=== PATIENT | male | born 1990 | race Two or more races ===

== ENCOUNTER 2024-01-03 18:24 | Emergency (ER) | payer OTHER ==
[~2024-01-03] VITALS: Ht 175.3 cm; Wt 131.0 kg
[2024-01-03 18:33] VITALS: BP 154/109; PULSE 84; RESP 18; TEMP 98.6; O2SAT 96
[2024-01-03] MEDS ORDERED: BENZOCAINE (DENTAL) 20 % SPRAY 60ML MT ONE (20:15)
[2024-01-03] MEDS ORDERED: HUR60 MT (20:43)
[2024-01-03] MEDS: cefTRIAXone SOD 1,000 MG VL IM ONE (20:52)
[2024-01-03] MEDS: KETOROLAC TROMETH 60MG/2ML VIAL IM ONE (20:59)
== END 2024-01-03 20:55 | disposition home or self-care (01) ==
LOC: ER 18:24
DX: K04.7 Periapical abscess without sinus (principal); Z98.890 Other specified postprocedural states
CPT/HCPCS: 96372; 99284; J0696; J1885

== ENCOUNTER 2024-01-07 15:25 | Emergency (ER) | payer OTHER ==
[~2024-01-07] VITALS: Ht 177.8 cm; Wt 128.3 kg
[~2024-01-07 15:25] MED LIST: HUR60 MT
[2024-01-07] MEDS: HYDROcodone-ACET 10/325MG TAB PO ONE (16:37)
[2024-01-07 16:43] VITALS: BP 148/94; PULSE 78; RESP 17; TEMP 98.9; O2SAT 98
[2024-01-07] MEDS ORDERED: IBUP-1456 PO (16:43)
== END 2024-01-07 17:03 | disposition home or self-care (01) ==
LOC: ER 15:25
DX: K04.7 Periapical abscess without sinus (principal); Z79.899 Other long term (current) drug therapy

== ENCOUNTER 2024-01-12 14:14 | Emergency (ER) | payer OTHER ==
[~2024-01-12] VITALS: Ht 175.3 cm; Wt 128.0 kg
[~2024-01-12 14:14] MED LIST changes: +IBUP-1456 PO
[2024-01-12 14:26] VITALS: BP 174/109; PULSE 74; RESP 16; O2SAT 98
[2024-01-12] MEDS ORDERED: TRAM-626 PO (15:57)
[2024-01-12] MEDS ORDERED: HYDROcodone-ACET 10/325MG TAB PO ONE (16:00)
== END 2024-01-12 16:01 | disposition home or self-care (01) ==
LOC: ER 14:14
DX: K04.7 Periapical abscess without sinus (principal); Z79.899 Other long term (current) drug therapy

== ENCOUNTER 2024-07-16 13:39 | Emergency (ER) | payer OTHER ==
[~2024-07-16] VITALS: Ht 177.8 cm; Wt 119.3 kg
[~2024-07-16 13:39] MED LIST changes: +TRAM-626 PO
[2024-07-16 15:02] VITALS: BP 135/93; PULSE 80; RESP 17; TEMP 99; O2SAT 97
--- NOTE | 2024-07-16 15:42 | DVH ---
XY R TIB FIB XRAY, INDICATION: pain to the distal tib. r/o fracture TECHNICAL DATA: Frontal and lateral views were obtained of the right leg. COMPARISON: None FINDINGS: There is no osseous abnormality. Soft tissues are normal. IMPRESSION: No acute fracture or dislocation.
[2024-07-16] MEDS ORDERED: CEPH500T PO (15:54)
[2024-07-16] MEDS ORDERED: IBUP-1455 PO (15:54)
--- NOTE | 2024-07-16 15:54 | ED.PDOC ---
Musculoskeletal HPI Comments 34 year old smoker presents for localized well demarcated erythema and tenderness to the RLE x 3 days Concerns about possible infection Denies f/c/n/v/d Able to ambulate Chief Complaint: Lower Extremity Time Seen by MD: 14:43 Primary Care Provider: none Reviewed Notes: Nurses Notes, Medications, Allergies Allergies: Coded Allergies: NO KNOWN ALLERGIES (Unverified , 01/03/24) Home Meds Active Scripts Ibuprofen Micronized (Ibuprofen) 800 Mg Tab, 800 MG PO TID for 10 Days, #30 TAB 0 Refills Prov:SERA PLAZA CATALYST PLANT SUPERVISOR 07/16/24 Cephalexin Monohydrate (Cephalexin) 500 Mg Tab, 1 TAB PO QID for 10 Days, #40 TAB 0 Refills Prov:SERA PLAZA CATALYST PLANT SUPERVISOR 07/16/24 Tramadol HCl (Tramadol HCl) 50 Mg Tab, 50 MG PO BID, #20 TAB Prov:BLANCA GARNICA 01/12/24 Ibuprofen (Ibuprofen) 800 Mg Tab, 1 TAB PO TID, #30 TAB Prov:BLANCA GARNICA 01/07/24 Benzocaine (Dental) (HURRICAINE SPRAY) 1 Spr Sp, 1 SPR MT QIDPRN, #1 SPRAY 0 Refills Prov:ISABELA COLES 01/03/24 Information Source: Patient Mode of Arrival: Ambulatory Past Medical History PAST MEDICAL HISTORY: Denies Surgical History: Denies all surgeries Family History Family History: Reviewed,noncontributory to illness Social History Smoker: Non-Smoker Alcohol: Denies ETOH Use Drugs: Denies Drug Use Lives In: Home All Other Systems: Reviewed and Negative (per hpi) Physical Exam General Appearance: No Apparent Distress, Normal HEENT: Normal ENT Inspection, Pharynx Normal, TMs Normal Neck: Full Range of Motion, Non-Tender, Normal, Normal Inspection Respiratory: Chest Non-Tender, Lungs Clear, No Accessory Muscle Use, No Respiratory Distress, Normal Breath Sounds Cardiovascular: No Edema, No JVD, No Murmur, No Gallop, Normal Peripheral Pulses, Regular Rate/Rhythm Breast Exam: Deferred Gastrointestinal: No Organomegaly, Non Tender, No Pulsatile Mass, Normal Bowel Sounds, Soft Genitalia: Deferred Pelvic: Deferred Rectal: Deferred Extremities: No calf tenderness, Normal capillary refill, Normal inspection, Normal range of motion, Non-tender, No pedal edema Musculoskeletal : Location: Right Extremity Location: Leg (Localized erythema. no crepitus. full rom. distal sensation intact) Apperance: Normal Neurologic: Alert, No Motor Deficits, Normal Affect, Normal Mood, No Sensory Deficits Cerebellar Function: Normal Reflexes: Normal Skin: Dry, Normal Color, Warm Lymphatic: No Adenopathy Was a procedure done? Was a procedure done?: No Differential Diagnosis EXT Differential Diagnosis: Cellulitis, Sprain, Other X-Ray, Labs, Meds, VS Vital Signs Date Time Temp Pulse Resp B/P (MAP) Pulse Ox O2 Delivery O2 Flow Rate FiO2 07/16/24 15:02 80 17 97 Room Air 07/16/24 15:02 99.0 80 17 135/93 (107) 97 99.0 07/16/24 13:48 99.0 80 17 155/93 (113) 97 99.0 Current Medications Medications (Trade) Dose Ordered Sig/Cornelius Route Start Time Stop Time Status Last Admin Ketorolac Tromethamine (Toradol Injection) 30 mg ONCE ONCE IM 07/16/24 16:15 07/16/24 16:09 DC 07/16/24 16:09 X-Ray, Labs, Meds, VS Comment Exam findings consistent with cellulitis. No signs of severe infection (hemodynamically instability (endorgan damage or extensive local progression) will manage with outpatient antibiotics Ibuprofen as needed for fever and pain Patient is stable for discharge at this time. External notes reviewed. All diagnostic findings, discharge care, education and instructions provided Follow-up with PCP in 2 to 3 days Patient verbalized understanding and agreed to treatment plan Vital signs stable, afebrile, no acute distress noted Patient ambulatory with strong steady gait Advised to return precautions for any new or worsening symptoms, return to ER immediately for re-evaluation Patient is aware that the purpose of this visit was for an acute medical emergency requiring emergent stabilization. Chronic conditions, including malignancies have not been ruled out. Patient is instructed to follow up with PCP as directed and discharge instructions for continued care and workup. If unable to arrange follow-up, patient is to return to the emergency department for reassessment. Patient (parent or legal guardian if applicable) was given verbal and written discharge instructions and acknowledges understanding. Time of 1ST Reevaluation: 15:30 Reevaluation 1ST: Improved Patient Education/Counseling: Diagnosis, Treatment Family Education/Counseling: Diagnosis, Treatment Departure 1 Departure Time of Disposition: 15:49 Impression: Primary Impression: Erysipelas Additional Impression: Encounter for smoking cessation counseling Disposition: HOME / SELF CARE / HOMELESS Condition: Stable e-Prescriptions Ibuprofen Micronized (Ibuprofen) 800 Mg Tab 800 MG PO TID for 10 Days, #30 TAB 0 Refills Prov: SERA PLAZA NP 07/16/24 Cephalexin Monohydrate (Cephalexin) 500 Mg Tab 1 TAB PO QID for 10 Days, #40 TAB 0 Refills Prov: SERA PLAZA NP 07/16/24 Critical Care Note Critical Care Time?: No Stability Stability form required: No Heart Score Heart Score: Heart Score Response (Comments) Value History N/A 0 EKG N/A 0 Age N/A 0 Risk Factors N/A 0 Troponin N/A 0 Total 0 SERA PLAZA NP Jul 16, 2024 15:54
[2024-07-16] MEDS: KETOROLAC TROMETH 30 MG/ML 1ML VIAL IM ONE (16:09)
== END 2024-07-16 16:09 | disposition home or self-care (01) ==
LOC: ER 13:39
DX: A46 Erysipelas (principal); Z71.6 Tobacco abuse counseling; Z79.1 Long term (current) use of non-steroidal anti-inflammatories (NSAID); Z79.899 Other long term (current) drug therapy
CPT/HCPCS: 73590; 96372; 99283; J1885

== ENCOUNTER 2024-07-18 18:49 | Emergency (ER) | payer OTHER ==
[~2024-07-18] VITALS: Ht 177.8 cm; Wt 143.2 kg
[~2024-07-18 18:49] MED LIST changes: +CEPH500T PO; +IBUP-1455 PO
--- NOTE | 2024-07-18 19:56 | ED.PDOC ---
Musculoskeletal HPI Comments 34y M who presents to the ED for chief complaint of lower extremity pain. Pt states he has been having R lower extremity pain and swelling for unknown time. Pt states over the past few days, he has noticed increased swelling and pain and came to the ED for further evaluation. Pt otherwise denies shortness of breath, chest pain, palpitations, cough, fever, chills, dysuria or hematuria. 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 Pt has past history of meth abuse and states he suffered from alcohol abuse. Pt otherwise denies any other symptoms at this time. Chief Complaint: Lower Extremity Time Seen by MD: 19:52 Primary Care Provider: none Reviewed Notes: Nurses Notes, Medications, Allergies Allergies: Coded Allergies: NO KNOWN ALLERGIES (Unverified , 01/03/24) Home Meds Active Scripts Ibuprofen Micronized (Ibuprofen) 800 Mg Tab, 800 MG PO TID for 10 Days, #30 TAB 0 Refills Prov:SERA PLAZA HEAVY EQUIPMENT OPERATING ENGINEER 07/16/24 Cephalexin Monohydrate (Cephalexin) 500 Mg Tab, 1 TAB PO QID for 10 Days, #40 TAB 0 Refills Prov:SERA PLAZA NP 07/16/24 Tramadol HCl (Tramadol HCl) 50 Mg Tab, 50 MG PO BID, #20 TAB Prov:BLANCA GARNICA 01/12/24 Ibuprofen (Ibuprofen) 800 Mg Tab, 1 TAB PO TID, #30 TAB Prov:BLANCA GARNICA 01/07/24 Benzocaine (Dental) (HURRICAINE SPRAY) 1 Spr Sp, 1 SPR MT QIDPRN, #1 SPRAY 0 Refills Prov:ISABELA COLES 01/03/24 Information Source: Patient Mode of Arrival: Ambulatory Brought in by: self Location: Right Extremity Location: Leg Timing: Came on: Gradually Prehospital treatment: None Severity: Moderate Able to Move Extremity: Yes Bear Weight: Fully Pain: Moderate Mechanism: Spontaneous Circumstances: Spontaneous Onset of Symptoms: Spontaneous Symptoms: Swelling, Pain DVT Risk Factors: NONE Last Tetanus: Unknown Associated signs and symptoms: Leg pain Past Medical History PAST MEDICAL HISTORY: Denies Surgical History: Denies all surgeries Family History Family History: Reviewed,noncontributory to illness Social History Smoker: Cigarettes Alcohol: Sober Drugs: Denies Drug Use, Methamphetamine Lives In: Home Constitutional: denies: chills, diaphoresis, fatigue, fever, malaise, sweats, weakness, others EENTM: denies: blurred vision, double vision, ear bleeding, ear discharge, ear drainage, ear pain, ear ringing, eye pain, eye redness, hearing loss, mouth pain , mouth swelling, nasal discharge, nose bleeding, nose congestion, nose pain, photophobia, tearing, throat pain, throat swelling, voice changes, others Respiratory: denies: cough, hemoptysis, orthopnea, SOB at rest, shortness of breath, SOB with excertion, stridor, wheezing, others Cardiovascular: denies: chest pain, dizzy spells, diaphoresis, Dyspnea on exertion, edema, irregular heart beat, left arm pain, lightheadedness, palpitations, PND, syncope, others Gastrointestinal: denies: abdomen distended, abdominal pain, blood streaked bowels, constipated, diarrhea, dysphagia, difficulty swallowing, hematemesis, melena, nausea, poor appetite, poor fluid intake, rectal bleeding, rectal pain, vomiting, others Genitourinary: denies: burning, dysuria, flank pain, frequency, hematuria, incontinence, penile discharge, penile sore, pain, testicle pain, testicle swelling, urgency, others Neurological: denies: dizziness, fainting, headache, left sided numbness, left sided weakness, numbness, paresthesia, pre-existing deficit, right sided numbness, right sided weakness, seizure, speech problems, tingling, tremors, weakness, others Musculoskeletal: reports: joint pain (RLE); denies: back pain, gout, joint swelling, muscle pain, muscle stiffness, neck pain, others Integumetry: reports: change in color (RLE); denies: bruises, change in hair/nails, dryness, laceration, lesions, lumps, rash, wounds, others Allergic/Immunocompromised: denies: Difficulty Healing, Frequent Infections, Hives, Itching, others Hematologic/Lymphatic: denies: anemia, blood clots, easy bleeding, easy bruising, swollen glands, others Endocrine: denies: excessive hunger, excessive sweating, excessive thirst, excessive urination, flushing, intolerance to cold, intolerance to heat, unexplained weight gain, unexplained weight loss, others Psychiatric: denies: anxiety, bipolar disorder, depression, hopeless, panic disorder, schizophrenia, sleepless, suicidal, others All Other Systems: Reviewed and Negative Physical Exam General Appearance: Mild Distress HEENT: Normal ENT Inspection, Pharynx Normal, TMs Normal Neck: Full Range of Motion, Non-Tender, Normal, Normal Inspection Respiratory: Chest Non-Tender, Lungs Clear, No Accessory Muscle Use, No Respiratory Distress, Normal Breath Sounds Cardiovascular: No Edema, No JVD, No Murmur, No Gallop, Normal Peripheral Pulses, Regular Rate/Rhythm Breast Exam: Deferred Gastrointestinal: No Organomegaly, Non Tender, No Pulsatile Mass, Normal Bowel Sounds, Soft Genitalia: Deferred Pelvic: Deferred Rectal: Deferred Extremities: No calf tenderness, Normal capillary refill, Normal inspection, Normal range of motion, Non-tender, No pedal edema Musculoskeletal : Apperance: Normal Neurologic: Alert, photogrammetric surveyor II-XII nml as Tested, No Motor Deficits, Normal Affect, Normal Mood, No Sensory Deficits Cerebellar Function: Normal Reflexes: Normal Skin: Dry, Normal Color, Warm Lymphatic: No Adenopathy Was a procedure done? Was a procedure done?: No Differential Diagnosis EXT Differential Diagnosis: Cellulitis, CHF, Deep Vein Thrombosis, DJD, Septic X-Ray, Labs, Meds, VS Vital Signs Date Time Temp Pulse Resp B/P (MAP) Pulse Ox O2 Delivery O2 Flow Rate FiO2 07/18/24 19:37 99.6 77 18 144/92 (109) 98 99.6 Ultrasound of the right lower extremity is negative for DVT The patient was being discharged The patient will follow up with the primary care doctor The patient will return to the emergency department's the condition worsens. Images Reviewed?: Images reviewed and evaluated by me Time of 1ST Reevaluation: 20:30 Reevaluation 1ST: Unchanged Patient Education/Counseling: Diagnosis, Treatment, Prognosis, Need For Follow Up Family Education/Counseling: No Family Present Additional Information -Reviewed patient's previous visit(s): - The following tests were ordered, and results were reviewed by me: R lower DVT US - Additional information was gathered from interviewing the following independent Historian: patient - I reviewed and agreed with the following test results read by other provider: radiologist - I discussed treatments and results with medical personnel and: patient Comprehensive systems review obtained and negative except for what is stated in the HPI. Departure 1 Departure Time of Disposition: 20:27 Impression: Primary Impression: Right leg swelling Disposition: HOME / SELF CARE / HOMELESS Condition: Fair Discharged With: Self Critical Care Note Critical Care Time?: No Stability Stability form required: No Heart Score Heart Score: Heart Score Response (Comments) Value History N/A 0 EKG N/A 0 Age N/A 0 Risk Factors N/A 0 Troponin N/A 0 Total 0 I personally scribed for GAVIN DONG MD ([email or web address]) on 07/18/24 at 19:56. Electronically submitted by Scarlett Beckham ([email or web address]). GAVIN DONG MD Jul 18, 2024 19:56
--- NOTE | 2024-07-18 20:09 | DVH ---
CLINICAL HISTORY: right leg swelling TECHNIQUE: Color and duplex doppler imaging of the right lower extremity veins was performed. Vessel compression if possible was also performed. WID: COMPARISON: None FINDINGS: Right common femoral vein: Normal compressibility and flow. Right femoral vein: Normal compressibility and flow. Right popliteal vein: Normal compressibility and flow. Proximal calf veins are normally compressible. IMPRESSION: NO SONOGRAPHIC EVIDENCE FOR DEEP VENOUS THROMBOSIS IN THE RIGHT LOWER EXTREMITY VEINS.
[2024-07-18 20:56] VITALS: BP 143/81; PULSE 96; RESP 18; TEMP 98; O2SAT 97
[2024-07-19] MEDS ORDERED: BACDST PO (15:29)
== END 2024-07-18 20:59 | disposition home or self-care (01) ==
LOC: ER 18:49
DX: M79.89 Other specified soft tissue disorders (principal); F17.210 Nicotine dependence, cigarettes, uncomplicated; F12.90 Cannabis use, unspecified, uncomplicated; Z79.899 Other long term (current) drug therapy; Z79.1 Long term (current) use of non-steroidal anti-inflammatories (NSAID)
CPT/HCPCS: 93971

== ENCOUNTER 2024-07-19 13:47 | Emergency (ER) | payer OTHER ==
[~2024-07-19] VITALS: Ht 175.3 cm; Wt 141.9 kg
[2024-07-19 14:14] VITALS: BP 141/80; PULSE 78; RESP 16; TEMP 98.7; O2SAT 97
--- NOTE | 2024-07-19 14:28 | ED.PDOC ---
Musculoskeletal HPI Comments A 34 YEAR OLD MALE PRESENTS TO THE ED WITH CHIEF COMPLAINT OF RIGHT LEG PAIN, REDNESS, AND SWELLING. PATIENT REPORTS THAT HE HAS BEEN EXPERIENCING RIGHT LEG PAIN, SWELLING, AND REDNESS SINCE TUESDAY. PATIENT RELAYS THAT HE VISITED THE ED YESTERDAY FOR THE SAME CONCERN, WAS TOLD HE HAD NO DVT NOTED, BUT WAS PRESCRIBED KEFLEX AND IBUPROFEN. PATIENT NOTES HE RETURNED TODAY DUE TO THE PAIN CONTINUING. PATIENT DENIES ANY NUMBNESS, WEAKNESS, FEVER, CHILLS, SOB, OR CHEST PAIN. NO OTHER SYMPTOMS REPORTED AT THIS TIME OF CARE. Chief Complaint: Lower Extremity Time Seen by MD: 14:24 Primary Care Provider: NONE Reviewed Notes: Nurses Notes, Medications, Allergies Allergies: Coded Allergies: NO KNOWN ALLERGIES (Unverified , 01/03/24) Home Meds Active Scripts Sulfamethoxazole W/Trimethopri (Bactrim Ds Tablet) 1 Tab Tb, 1 TAB PO BID, #20 TAB Prov:BLANCA GARNICA 07/19/24 Ibuprofen Micronized (Ibuprofen) 800 Mg Tab, 800 MG PO TID for 10 Days, #30 TAB 0 Refills Prov:SERA PLAZA HUMAN RESOURCES OFFICE ASSISTANT 07/16/24 Cephalexin Monohydrate (Cephalexin) 500 Mg Tab, 1 TAB PO QID for 10 Days, #40 TAB 0 Refills Prov:SERA PLAZA HUMAN RESOURCES OFFICE ASSISTANT 07/16/24 Tramadol HCl (Tramadol HCl) 50 Mg Tab, 50 MG PO BID, #20 TAB Prov:BLANCA GARNICA 01/12/24 Ibuprofen (Ibuprofen) 800 Mg Tab, 1 TAB PO TID, #30 TAB Prov:BLANCA GARNICA 01/07/24 Benzocaine (Dental) (HURRICAINE SPRAY) 1 Spr Sp, 1 SPR MT QIDPRN, #1 SPRAY 0 Refills Prov:ISABELA COLES 01/03/24 Information Source: Patient Mode of Arrival: Ambulatory Location: Right Extremity Location: Leg Timing: Days Prehospital treatment: None Severity: Moderate Able to Move Extremity: Yes Bear Weight: Limited Pain: Moderate Mechanism: Spontaneous Circumstances: Spontaneous Onset of Symptoms: Spontaneous Symptoms: Swelling, Pain, Erythema, Warmth DVT Risk Factors: NONE Last Tetanus: Unknown Associated signs and symptoms: Leg pain Past Medical History PAST MEDICAL HISTORY: Denies Surgical History: Denies all surgeries Family History Family History: Reviewed,noncontributory to illness Social History Smoker: Cigarettes Alcohol: Sober Drugs: Denies Drug Use, Methamphetamine Lives In: Home Constitutional: denies: chills, diaphoresis, fatigue, fever, malaise, sweats, weakness, others EENTM: denies: blurred vision, double vision, ear bleeding, ear discharge, ear drainage, ear pain, ear ringing, eye pain, eye redness, hearing loss, mouth pain, mouth swelling, nasal discharge, nose bleeding, nose congestion, nose pain, photophobia, tearing, throat pain, throat swelling, voice changes, others Respiratory: denies: cough, hemoptysis, orthopnea, SOB at rest, shortness of breath, SOB with excertion, stridor, wheezing, others Cardiovascular: denies: chest pain, dizzy spells, diaphoresis, Dyspnea on exertion, edema, irregular heart beat, left arm pain, lightheadedness, palpitations, PND, syncope, others Gastrointestinal: denies: abdomen distended, abdominal pain, blood streaked bowels, constipated, diarrhea, dysphagia, difficulty swallowing, hematemesis, melena, nausea, poor appetite, poor fluid intake, rectal bleeding, rectal pain, vomiting, others Genitourinary: denies: burning, dysuria, flank pain, frequency, hematuria, incontinence, penile discharge, penile sore, pain, testicle pain, testicle swelling, urgency, others Neurological: denies: dizziness, fainting, headache, left sided numbness, left sided weakness, numbness, paresthesia, pre-existing deficit, right sided numbness, right sided weakness, seizure, speech problems, tingling, tremors, wea kness, others Musculoskeletal: denies: back pain, gout, joint pain, joint swelling, muscle pain, muscle stiffness, neck pain, others Integumetry: reports: others (REDNESS AND SWELLING TO RIGHT LOWER LEG); denies: bruises, change in color, change in hair/nails, dryness, laceration, lesions, lumps, rash, wounds Allergic/Immunocompromised: denies: Difficulty Healing, Frequent Infections, Hives, Itching, others Hematologic/Lymphatic: denies: anemia, blood clots, easy bleeding, easy bruising, swollen glands, others Endocrine: denies: excessive hunger, excessive sweating, excessive thirst, excessive urination, flushing, intolerance to cold, intolerance to heat, unexplained weight gain, unexplained weight loss, others Psychiatric: denies: anxiety, bipolar disorder, depression, hopeless, panic disorder, schizophrenia, sleepless, suicidal, others All Other Systems: Reviewed and Negative Physical Exam General Appearance: No Apparent Distress, Obese HEENT: Normal ENT Inspection, PERRL/EOMI, Pharynx Normal Neck: Full Range of Motion, Non-Tender, Normal, Normal Inspection Respiratory: Chest Non-Tender, Lungs Clear, No Accessory Muscle Use, No Respiratory Distress, Normal Breath Sounds Cardiovascular: No Edema, No JVD, No Murmur, No Gallop, Normal Peripheral Pulses, Regular Rate/Rhythm Breast Exam: Deferred Gastrointestinal: No Organomegaly, Non Tender, No Pulsatile Mass, Normal Bowel Sounds, Soft Genitalia: Deferred Pelvic: Deferred Rectal: Deferred Extremities: No calf tenderness, Normal capillary refill, Normal range of motion, No pedal edema, Tender (AND MILD SWELLING AND REDNESS ON RIGHT INNER LOWER LEG, NO DVT SIGNS. ) Musculoskeletal : Apperance: Normal Neurologic: Alert, livestock farm workers II-XII nml as Tested, No Motor Deficits, Normal Affect, Normal Mood, No Sensory Deficits Cerebellar Function: Normal Reflexes: Normal Skin: Dry, Warm, Other (LOCALIZED ERYTHEMA AND MILD SWELLING ON RIGHT INNER LOWER LEG, NO OPEN WOUND SEEN, +EARLY STAGE CELLULITIS OF RIGHT LOWER LEG. ) Peripheral Pulses: 2+ carotid (R), 2+ carotid (L), 2+ dorsalis pedis (R), 2+ dorsalis pedis (L) Lymphatic: No Adenopathy Was a procedure done? Was a procedure done?: No Differential Diagnosis EXT Differential Diagnosis: Cellulitis, Deep Vein Thrombosis, Contusion, Strain X-Ray, Labs, Meds, VS Vital Signs Date Time Temp Pulse Resp B/P (MAP) Pulse Ox O2 Delivery O2 Flow Rate FiO2 07/19/24 14:14 98.7 78 16 141/80 (100) 97 98.7 07/19/24 14:14 78 16 97 Room Air 07/19/24 14:00 98.7 78 16 141/80 (100) 97 98.7 Lab Test 07/19/24 14:35 07/19/24 13:57 Range/Units White Blood Count 11.7 H 4.4-10.8 10^3/uL Red Blood Count 5.74 4.5-5.90 10^6/uL Hemoglobin 12.9 L 13.5-17.5 g/dL Hematocrit 41.3 41.0-53.0 % Mean Corpuscular Volume 71.9 L 80.0-100.0 fL Mean Corpuscular Hemoglobin 22.5 L 28.0-32.0 pg Mean Corpuscular Hemoglobin Concent 31.2 L 32.0-36.0 g/dL Red Cell Distribution Width 18.4 H 11.8-14.3 % Platelet Count 317 140-450 10^3/uL Mean Platelet Volume 8.2 6.9-10.8 fL Neutrophils (%) (Auto) 64.7 37.0-80.0 % Lymphocytes (%) (Auto) 25.3 10.0-50.0 % Monocytes (%) (Auto) 6.9 0.0-12.0 % Eosinophils (%) (Auto) 1.9 0.0-7.0 % Basophils (%) (Auto) 1.2 0.0-2.0 % Neutrophils # (Auto) 7.6 1.6-8.6 10 ^3/uL Lymphocytes # (Auto) 3.0 0.4-5.4 10 ^3/uL Monocytes # (Auto) 0.8 0-1.3 10 ^3/uL Eosinophils # (Auto) 0.2 0-0.8 10 ^3/uL Basophils # (Auto) 0.1 0-0.2 10 ^3/uL Nucleated Red Blood Cells 0.1 % Sodium Level 141 136-145 mmol/L Potassium Level 3.6 3.5-5.1 mmol/L Chloride Level 108 H 98-107 mmol/L Carbon Dioxide Level 26 20-31 mmol/L Anion Gap 7 5-15 Blood Urea Nitrogen 14 9-23 mg/dL Creatinine 0.72 0.700-1.30 mg/dL Glomerular Filtration Rate Calc 121 >90 mL/min BUN/Creatinine Ratio 19.4 10.0-20.0 Serum Glucose 88 74-106 mg/dL Calcium Level 9.8 8.7-10.4 mg/dL POC Glucose 135 H 70-106 mg/dl X-Ray, Labs, Meds, VS Comment EXTERNAL MEDICAL RECORDS REVIEWED: 07/18/24 FOR RIGHT LEG SWELLING. INDEPENDENT HISTORIANS: [NONE] SOCIAL DETERMINANTS OF HEALTH: [NONE] LABS ORDERED: CBC, BMP REVIEWED AND INTERPRETED RESULTS: NONE IMAGING ORDERED: NONE TREATMENTS ORDERED: ROCEPHIN 2G IVPB AND TORADOL 30MG IV PROCEDURES PERFORMED: NONE CRITICAL CARE TIME: NONE I HAVE DISCUSSED THE PATIENT WITH THE ATTENDING PHYSICIAN DR. HOWARD AND HE AGREES WITH THE PATIENT'S PLAN OF CARE AND DISPOSITION. BASED ON HISTORY OF PRESENT ILLNESS, AND PHYSICAL EXAM, PATIENT WILL BE DISCHARGED HOME. DISCUSSED PLAN FOR DISCHARGE HOME WITH [facility]. MEDICATION WARNINGS GIVEN. SHARED DECISION MAKING: DISCUSSED WITH PATIENT THAT THEIR WORKUP WAS NORMAL. PATIENT INSTRUCTED TO FOLLOW UP WITH PRIMARY CARE PROVIDER IN 1-2 DAYS FOR RE- EVALUATION OF SYMPTOMS. PATIENT VERBALIZES UNDERSTANDING TO RETURN TO ED FOR NEW OR WORSENING SYMPTOMS OR IF FOLLOW UP WITH PCP CANNOT BE OBTAINED. PATIENT FEELS COMFORTABLE GOING HOME AT THIS TIME. ALL QUESTIONS ADDRESSED AT TIME OF DISCHARGE. Time of 1ST Reevaluation: 15:50 Reevaluation 1ST: Unchanged Patient Education/Counseling: Diagnosis, Treatment, Need For Follow Up Family Education/Counseling: Diagnosis, Treatment, No Family Present Medical Screening: No EMC Exist At This Time Departure 1 Departure Time of Disposition: 14:34 Impression: Primary Impression: Cellulitis of right lower leg Disposition: 01 HOME / SELF CARE / HOMELESS Condition: Stable Additional Instructions: FOLLOW-UP WITH PCP IN 1 TO 2 DAYS. TAKE MEDICATIONS PRESCRIBED. RETURN TO ED FOR ANY NEW OR WORSENING SYMPTOMS. e-Prescriptions Sulfamethoxazole W/Trimethopri (Bactrim Ds Tablet) 1 Tab Tb 1 TAB PO BID, #20 TAB Prov: BLANCA GARNICA 07/19/24 Discharged With: Self Critical Care Note Critical Care Time?: No Stability Stability form required: No Heart Score Heart Score: Heart Score Response (Comments) Value History N/A 0 EKG N/A 0 Age N/A 0 Risk Factors N/A 0 Troponin N/A 0 Total 0 I personally scribed for BLANCA GARNICA ([email or web address]) on 07/19/24 at 14:28. Electronically submitted by Isidoro Rosenberg ([email or web address]). I personally scribed for BLANCA GARNICA ([email or web address]) on 07/19/24 at 14:34. Electronically submitted by Isidoro Rosenberg ([email or web address]). I personally scribed for BLANCA GARNICA ([email or web address]) on 07/19/24 at 15:01. Electronically submitted by Isidoro Rosenberg ([email or web address]). I personally scribed for BLANCA GARNICA ([email or web address]) on 07/19/24 at 15:29. Electronically submitted by Isidoro Rosenberg ([email or web address]). BLANCA GARNICA Jul 19, 2024 14:28
[2024-07-19 14:45] LABS: Basophils # (auto) 0.1 10 ^3/uL (0-0.2); Basophils % (auto) 1.2 % (0.0-2.0); Eosinophils # (auto) 0.2 10 ^3/uL (0-0.8); Eosinophils % (auto) 1.9 % (0.0-7.0); Hematocrit 41.3 % (41.0-53.0); Hemoglobin 12.9 g/dL (13.5-17.5); Lymphocytes % (auto) 25.3 % (10.0-50.0); Mean Corpuscular Hemoglobin 22.5 pg (28.0-32.0); Mean Corpuscular Hgb Conc. 31.2 g/dL (32.0-36.0); Mean Corpuscular Volume 71.9 fL (80.0-100.0); Monocytes # (auto) 0.8 10 ^3/uL (0-1.3); Monocytes % (auto) 6.9 % (0.0-12.0); Neutrophils # (auto) 7.6 10 ^3/uL (1.6-8.6); Neutrophils % (auto) 64.7 % (37.0-80.0); Nucleated Red Blood Cells % 0.1 %; Platelet Count (auto) 317 10^3/uL (140-450); Red Blood Cells 5.74 10^6/uL (4.5-5.90); Red Cell Distribution Width 18.4 % (11.8-14.3); White Blood Cell 11.7 10^3/uL (4.4-10.8)
[2024-07-19] MEDS: cefTRIAXone 1GM/50ML D5W 50 ML IV ONE ×2 (14:48)
[2024-07-19] MEDS: KETOROLAC TROMETH 30 MG/ML 1ML VIAL IV ONE (14:48)
[2024-07-19 14:55] LABS: Potassium 3.6 mmol/L (3.5-5.1); Sodium 141 mmol/L (136-145)
[2024-07-19 14:56] LABS: Anion Gap 7 (5-15); Calcium 9.8 mg/dL (8.7-10.4); Carbon Dioxide 26 mmol/L (20-31)
[2024-07-19 15:01] LABS: BUN/Creatinine Ratio 19.4 (10.0-20.0); Blood Urea Nitrogen 14 mg/dL (9-23); Glucose 88 mg/dL (74-106)
[2024-07-19 15:06] LABS: Chloride 108 mmol/L (98-107)
[2024-07-19] MEDS ORDERED: BACDST PO (15:29)
== END 2024-07-19 15:39 | disposition home or self-care (01) ==
LOC: ER 13:47
DX: L03.115 Cellulitis of right lower limb (principal); F17.210 Nicotine dependence, cigarettes, uncomplicated; F15.90 Other stimulant use, unspecified, uncomplicated; Z79.1 Long term (current) use of non-steroidal anti-inflammatories (NSAID); Z79.899 Other long term (current) drug therapy
CPT/HCPCS: 36415; 80048; 82947; 85025; 99283; J0696; 82962; J1885

== ENCOUNTER 2024-08-13 16:31 | Emergency (ER) | payer MEDICAID ==
[~2024-08-13] VITALS: Ht 175.3 cm; Wt 139.5 kg
[~2024-08-13 16:31] MED LIST changes: +BACDST PO
--- NOTE | 2024-08-13 17:54 | ED.PDOC ---
Musculoskeletal HPI Comments HPI: Vitals Temperature: 97.4 F Respiratory rate: 20 SpO2: 96% RA Heart rate: 104 Blood pressure: 164/97 HPI: Poor Historian. 34-year-old male presents to emergency department for evaluation of right ankle swelling. Said he was here a month ago and was diagnosed with cellulitis was given antibiotics and ibuprofen which helped it resolved. He said it was much worse back then. He presents to the emergency department with the same complaint now but not as severe as it was a month ago. There is minimal swelling appreciated on exam. Denies any associated symptoms of nausea vomiting fever or calf tenderness or numbness or tingling sensation. Past Medical History: Denies any Past Surgical History: Denies any REVIEW OF SYSTEMS: CONSTITUTIONAL: Denies acute: fever, diaphoresis, chills, generalized weakness. HEAD: Denies acute: headache, photophobia Eyes: Denies acute: Double vision, vision loss, eye pain, eye discharge. EARS: Denies acute: tinnitus, hearing loss, ear discharge, ear pain, THROAT: Denies acute: sore throat, swelling, difficulty swallowing , pain with swallowing, change in voice. NECK: Denies acute: neck pain, neck swelling, stiff neck. HEART: Denies acute : chest pain, palpitations, LUNGS: Denies acute: SOB, wheezing, cough, hemoptysis ABDOMEN: Denies acute: abdominal pain, Nausea, Vomiting, diarrhea, melena , hematemesis, hematochezia SKIN: Denies acute: rash, redness, lesions, itchiness. EXTREMITIES: Denies acute: calf pain, numbness, tingling, weakness, denies pain in extremity. Denies acute: Low back pain. Neuro: Denies acute: focal neurological deficit, motor or sensory focal neurological deficit, tremors, seizure like activity, confusion, dizziness, change in mental status, loss of bowel or bladder function, cauda equina like symptoms. : Denies acute: dysuria, hematuria, flank pain, increase in urinary frequency. PSYCH: Denies acute: hallucination, suicidal ideation, homicidal ideation. PHYSICAL EXAM: General: ----no----acute distress, awake and alert. Head: normocephalic, atraumatic. Neck: supple, trachea is midline, no swelling. Throat: Normal phonation. Eyes:, no erythema, no purulent discharge, no proptosis, no icterus. Heart: regular rate, regular rhythm, no significant murmur appreciated. Lungs: no apparent respiratory distress, Able to speak in full sentences. No wheezing, no rhonchi, no crackles. No stridors Clear to auscultation bilaterally. Abdomen: non tender to palpation, non distended, soft, no guarding, no rebound, + bowel sounds. Obese. Neuro: Awake, Alert, oriented to name, self, situation, follows commands GCS=15. Speech is normal. Skin: no petechia, no purpura, no cyanosis, non-pale, not jaundice. Lower extremities: --no - Pitting edema no deformity, minimal right lateral malleoli focal swelling, no calf TTP. Right lower extremity: Patient is neurovascularly intact in the affected extremity. Pedal pulses palpable bilaterally. Motor and sensory are present bilaterally. Makes eye contact. moves all four extremities. Face: no apparent facial droop. Ambulating in the ED independently. ED COURSE: Chief Complaint: Lower Extremity Time Seen by MD: 17:50 Primary Care Provider: NONE Reviewed Notes: Nurses Notes, Medications, Allergies Allergies: Coded Allergies: NO KNOWN ALLERGIES (Unverified , 01/03/24) Home Meds Active Scripts Cephalexin Monohydrate (Cephalexin) 500 Mg Tab, 1 TAB PO TID for 7 Days, #21 TAB Prov:GARETH KINGSLEY DO 08/13/24 Sulfamethoxazole W/Trimethopri (Bactrim Ds Tablet) 1 Tab Tb, 1 TAB PO BID, #20 TAB Prov:BLANCA GARNICA 07/19/24 Ibuprofen Micronized (Ibuprofen) 800 Mg Tab, 800 MG PO TID for 10 Days, #30 TAB 0 Refills Prov:SERA PLAZA NP 07/16/24 Cephalexin Monohydrate (Cephalexin) 500 Mg Tab, 1 TAB PO QID for 10 Days, #40 TAB 0 Refills Prov:SERA PLAZA NP 07/16/24 Tramadol HCl (Tramadol HCl) 50 Mg Tab, 50 MG PO BID, #20 TAB Prov:BLANCA GARNICA 01/12/24 Ibuprofen (Ibuprofen) 800 Mg Tab, 1 TAB PO TID, #30 TAB Prov:BLANCA GARNICA 01/07/24 Benzocaine (Dental) (HURRICAINE SPRAY) 1 Spr Sp, 1 SPR MT JAME, #1 SPRAY 0 Refills Prov:ISABELA COLES 01/03/24 Information Source: Patient Mode of Arrival: Ambulatory Past Medical History PAST MEDICAL HISTORY: Denies Surgical History: Denies all surgeries Family History Family History: Reviewed,noncontributory to illness Social History Smoker: Cigarettes Alcohol: Sober Drugs: Denies Drug Use Lives In: Home Was a procedure done? Was a procedure done?: No Differential Diagnosis EXT Differential Diagnosis: Cellulitis, CHF, Deep Vein Thrombosis, Compartment Syndrome, Fracture, Sprain, Dislocation, Laceration, Gout, Myocardial Infa rction, Contusion, Strain, Rheumatoid, Septic, Hernia, Neurovascular injury, Arthritis, Bursitis X-Ray, Labs, Meds, VS Vital Signs Date Time Temp Pulse Resp B/P (MAP) Pulse Ox O2 Delivery O2 Flow Rate FiO2 08/13/24 20:55 98.2 18 73 147/98 (114) 98 98.2 08/13/24 20:55 73 18 98 Room Air* 0 21 08/13/24 16:36 97.4 104 20 164/97 (119) 96 97.4 Lab Test 08/13/24 18:27 Range/Units White Blood Count 10.9 H 4.4-10.8 10^3/uL Red Blood Count 5.49 4.5-5.90 10^6/uL Hemoglobin 12.3 L 13.5-17.5 g/dL Hematocrit 39.7 L 41.0-53.0 % Mean Corpuscular Volume 72.3 L 80.0-100.0 fL Mean Corpuscular Hemoglobin 22.4 L 28.0-32.0 pg Mean Corpuscular Hemoglobin Concent 31.0 L 32.0-36.0 g/dL Red Cell Distribution Width 17.4 H 11.8-14.3 % Platelet Count 299 140-450 10^3/uL Mean Platelet Volume 8.7 6.9-10.8 fL Neutrophils (%) (Auto) 62.7 37.0-80.0 % Lymphocytes (%) (Auto) 26.9 10.0-50.0 % Monocytes (%) (Auto) 7.9 0.0-12.0 % Eosinophils (%) (Auto) 1.7 0.0-7.0 % Basophils (%) (Auto) 0.8 0.0-2.0 % Neutrophils # (Auto) 6.8 1.6-8.6 10 ^3/uL Lymphocytes # (Auto) 2.9 0.4-5.4 10 ^3/uL Monocytes # (Auto) 0.9 0-1.3 10 ^3/uL Eosinophils # (Auto) 0.2 0-0.8 10 ^3/uL Basophils # (Auto) 0.1 0-0.2 10 ^3/uL Nucleated Red Blood Cells 0.0 % Erythrocyte Sedimentation Rate 9 0-20 mm/hr Sodium Level 141 136-145 mmol/L Potassium Level 3.5 3.5-5.1 mmol/L Chloride Level 104 98-107 mmol/L Carbon Dioxide Level 29 20-31 mmol/L Anion Gap 8 5-15 Blood Urea Nitrogen 12 9-23 mg/dL Creatinine 0.84 0.700-1.30 mg/dL Glomerular Filtration Rate Calc 116 >90 mL/min BUN/Creatinine Ratio 14.3 10.0-20.0 Serum Glucose 93 74-106 mg/dL Lactic Acid Level 0.6 0.4-2.0 mmol/L Calcium Level 9.6 8.7-10.4 mg/dL Total Bilirubin 0.3 0.2-1.0 mg/dL Aspartate Amino Transferase (AST) 23 13-40 U/L Alanine Aminotransferase (ALT) 29 7-40 U/L Alkaline Phosphatase 159 H 46-116 U/L C-Reactive Protein High Sensitivity 0.48 <1.0 mg/dL B-Type Natriuretic Peptide 10.58 0-100 pg/mL Total Protein 7.2 5.7-8.2 g/dL Albumin 4.7 3.2-4.8 g/dL Time of 1ST Reevaluation: 17:53 Reevaluation 1ST: Unchanged Patient Education/Counseling: Diagnosis, Treatment Family Education/Counseling: No Family Present Comments Patient presented with the above HPI.--left ankle swelling and pain----workup was initiated. patient was found with the above mentioned diagnosis. the following medications were ordered: please refer to order lists of meds and tests obtained by myself Dr. Kingsley. Patient ED course and VS have been stabilized. Patient has been reassessed in the ED and remained in a stable condition. Pertinent incidental findings were discussed with the patient and/or family. Patient/family voices understanding and is agreeable with plan. Patient has been observed in the ED adequate length of time to insure improvement/stability. Escalation of care considered: Consideration of escalation to observation or admission Patient was DISCHARGED home in a stable condition. All the reports of any imaging studies that were ordered by myself were reviewed by myself. Departure 1 Departure Time of Disposition: 20:37 Impression: Primary Impression: Cellulitis of right lower leg Additional Impression: Joint effusion Disposition: HOME / SELF CARE / HOMELESS Condition: Stable Additional Instructions: Additional instructions: You MUST follow-up with your primary care/family doctor in 1 to 2 days. If you are unable to see your primary care/family doctor, please return to our emergency room for re-assessment and re-evaluation in 1 to 2 days. Return to the emergency room here in our facility or to the nearest ER [facility] if your symptoms change or worsen. CONSULTATIONS: you MUST Follow-up for consultation as soon as possible with: -orthopedic doctor in 1-2 days. Please call for appointment. You MUST call the consultants office yourself to make an appointment. You may need to arrange that through your insurance and/or your primary/family doctor. If you are unable to see the hr business partner consultant in 1 to 2 days, you must return to our emergency room (or any other ER of your choice) for re-assessment and re- evaluation. Adequate fluid hydration. Leg elevation, compression stockings, ice as needed for comfort, use [id number] Tylenol ibuprofen with food as instructed for pain control. Below is a copy of your radiological report for follow up: [address] [address] Ph: [phone] DIAGNOSTIC IMAGING Diagnostic Imaging Report : [id number] Signed PATIENT: NATHAN STANTON ACCT: [id number] UNIT: [id number] : 1990 LOC: ER ROOM / BED: / AGE / SEX: 34 / M ADM STATUS: REG ER SERVICE [id number] ORDERING PHYSICIAN: GARETH KINGSLEY DO PROCEDURE(s): RANK2 - R ANKLE 2 VIEW XRAY REASON: pain swelling in ankle ORDER NUMBER(s): [id number], ACCESSION NUMBER(s): [id number] CLINICAL INDICATION: pain swelling in ankle TECHNIQUE: 2 radiographic views of the right ankle were obtained. Comparison: None FINDINGS/IMPRESSION: Questionable anterior joint effusion of the tibiotalar joint. There also questionable small soft tissue calcifications which May suggest avulsion injury. No prior studies for comparison The visualized joint space is well maintained. The alignment is anatomical. There is no radiopaque foreign body. ATED BY: ELLY MCKEON Jr., DO DICTATED DATE/TIME: 08/13/241847 SIGNED BY: ELLY MCKEON Jr., SIGNED DATE/TIME: 08/13/241847 CC: e-Prescriptions Cephalexin Monohydrate (Cephalexin) 500 Mg Tab 1 TAB PO TID for 7 Days, #21 TAB Prov: GARETH KINGSLEY DO 08/13/24 Discharged With: Self Critical Care Note Critical Care Time?: No I personally scribed for GARETH KINGSLEY DO ([email or web address]) on 08/13/24 at 17:54. Electronically submitted by Cristina Ballard ([facility]). GARETH KINGSLEY DO Aug 13, 2024 17:54
--- NOTE | 2024-08-13 18:45 | DVH ---
EXAM: US Duplex Right Lower Extremity Veins CLINICAL INDICATION: pain swelling in ankle TECHNIQUE: Real-time duplex ultrasound scan of the right lower extremity veins integrating B-mode tw o-dimensional vascular structure, Doppler spectral analysis, color flow Doppler imaging and compressi on. COMPARISON: US RT LOWER DVT on DOS: 07/18/24 FINDINGS: DEEP VEINS: Unremarkable. No DVT in the visualized common femoral, femoral, proximal deep femoral or popliteal veins. The veins demonstrate normal color flow, are normally compressible, with normal phasic flow and/or augmentation response. SUPERFICIAL VEINS: Unremarkable. No thrombus in the visualized great saphenous vein. SOFT TISSUES: No acute findings. No popliteal cyst. OTHER FINDINGS: . None. IMPRESSION: No DVT.
--- NOTE | 2024-08-13 18:50 | DVH ---
CLINICAL INDICATION: pain swelling in ankle TECHNIQUE: 2 radiographic views of the right ankle were obtained. Comparison: None FINDINGS/IMPRESSION: Questionable anterior joint effusion of the tibiotalar joint. There also questionable small soft tiss ue calcifications which May suggest avulsion injury. No prior studies for comparison The visualized joint space is well maintained. The alignment is anatomical. There is no radiopaque foreign body.
[2024-08-13 19:24] LABS: Basophils # (auto) 0.1 10 ^3/uL (0-0.2); Basophils % (auto) 0.8 % (0.0-2.0); Eosinophils # (auto) 0.2 10 ^3/uL (0-0.8); Eosinophils % (auto) 1.7 % (0.0-7.0); Hemoglobin 12.3 g/dL (13.5-17.5); Lymphocytes # (auto) 2.9 10 ^3/uL (0.4-5.4); Monocytes # (auto) 0.9 10 ^3/uL (0-1.3); Monocytes % (auto) 7.9 % (0.0-12.0)
[2024-08-13 19:25] LABS: Hematocrit 39.7 % (41.0-53.0); Lymphocytes % (auto) 26.9 % (10.0-50.0); Mean Corpuscular Hemoglobin 22.4 pg (28.0-32.0); Mean Corpuscular Volume 72.3 fL (80.0-100.0); Neutrophils # (auto) 6.8 10 ^3/uL (1.6-8.6); Neutrophils % (auto) 62.7 % (37.0-80.0); Platelet Count (auto) 299 10^3/uL (140-450); Red Blood Cells 5.49 10^6/uL (4.5-5.90); Red Cell Distribution Width 17.4 % (11.8-14.3); White Blood Cell 10.9 10^3/uL (4.4-10.8)
[2024-08-13 19:43] LABS: Alanine Aminotransferase 29 U/L (7-40); Albumin 4.7 g/dL (3.2-4.8); Anion Gap 8 (5-15); Aspartate Aminotransferase 23 U/L (13-40); BUN/Creatinine Ratio 14.3 (10.0-20.0); Blood Urea Nitrogen 12 mg/dL (9-23); CRP High Sensitivity 0.48 mg/dL (<1.0); Calcium 9.6 mg/dL (8.7-10.4); Carbon Dioxide 29 mmol/L (20-31); Chloride 104 mmol/L (98-107); Glucose 93 mg/dL (74-106); Potassium 3.5 mmol/L (3.5-5.1); Sodium 141 mmol/L (136-145); Total Protein 7.2 g/dL (5.7-8.2)
[2024-08-13 20:02] LABS: Alkaline Phosphatase 159 U/L (46-116); Bilirubin, Total 0.3 mg/dL (0.2-1.0)
[2024-08-13 20:06] LABS: Erythrocyte Sedimentation Rate 9 mm/hr (0-20)
[2024-08-13] MEDS ORDERED: CEPH500T PO (20:37)
[2024-08-13] MEDS ORDERED: FUROSEMIDE 20 MG TAB PO ONE (20:45)
[2024-08-13 20:55] VITALS: BP 147/98; PULSE 73; RESP 18; TEMP 98.2; O2SAT 98
== END 2024-08-13 20:39 | disposition home or self-care (01) ==
LOC: ER 16:50
DX: L03.115 Cellulitis of right lower limb (principal); M25.471 Effusion, right ankle; F17.210 Nicotine dependence, cigarettes, uncomplicated; R06.02 Shortness of breath
CPT/HCPCS: 36415; 73600; 80053; 83605; 83880; 85025; 85652; 86141; 93971

== ENCOUNTER 2024-11-13 18:55 | Emergency (ER) | payer MEDICAID ==
[~2024-11-13] VITALS: Ht 177.8 cm; Wt 145.5 kg
--- NOTE | 2024-11-13 19:11 | ED.PDOC ---
General HPI Comments 34 year old male presents to the emergency department with a chief complaint of LT flank pain onset 10 days. Patient states he began experiencing dysuria with burning sensation as well as hematuria, noticed urine was sand-like, since then has been experiencing intermittent LT flank pain. Patient noticed LT flank pain radiates to LLQ. He has also been experiencing chills, constipation, last bowel movement was today around 04:00. Currently rates pain 5/10. Denies any PMHx as well as fevers, nausea, vomiting, diarrhea, hematemesis, dizziness, chest pain, shortness of breath. No other symptoms or modifying factors present at this time. Time Seen by MD: 19:05 Primary Care Provider: NONE Reviewed notes: Medications, Allergies Allergies: Coded Allergies: NO KNOWN ALLERGIES (Unverified , 01/03/24) Home Meds Active Scripts Ibuprofen (Ibuprofen) 600 Mg Tab, 1 TAB PO TID for 5 Days, #15 TAB Prov:BELKIS VALDIVIA MD 11/13/24 Acetaminophen (Acetaminophen Er) 650 Mg Tab, 650 MG PO TIDPRN PRN for 5 Days, #15 TAB Prov:BELKIS VALDIVIA MD 11/13/24 Discontinued Scripts Ibuprofen Micronized (Ibuprofen) 800 Mg Tab, 800 MG PO TID for 10 Days, #30 TAB 0 Refills Prov:SERA PLAZA NP 07/16/24 Ibuprofen (Ibuprofen) 800 Mg Tab, 1 TAB PO TID, #30 TAB Prov:BLANCA GARNICA 01/07/24 Information Source: Patient Mode of Arrival: Ambulatory Severity: Moderate Timing: Days Duration: Intermittent Prehospital treatment: None Onset: Spontaneous Symptoms: Dysuria, Hematuria History of: None Location: (L)Flank Penile discharge: None Modifying factors: None associated signs and symptoms: Flank Pain, Dysuria, Hematuria Vital Signs Vital Signs Date Time Temp Pulse Resp B/P (MAP) Pulse Ox O2 Delivery O2 Flow Rate FiO2 11/14/24 00:41 57 20 98 Room Air 11/14/24 00:41 97.5 149/91 (110) 97.5 Physical Exam PHYSICAL EXAM: General: Awake, alert and oriented. No acute distress. Skin: Skin in warm, dry and intact. Appropriate color for ethnicity. HEENT: The head is normocephalic and atraumatic. Conjunctivae are clear without exudates or hemorrhage. Sclera is non-icteric. EOM are intact. No signs of nystagmus. Eyelids are normal in appearance without swelling or lesions. Oral mucosa is pink and moist Neck: The neck is supple with normal range of motion. No JVD. Cardiac: Heart rate normal. Respiratory: No signs of respiratory distress. Abdominal: Abdomen is soft, right lower quadrant tenderness, left lower quadrant tenderness, left flank tenderness, left CVA tenderness. no distention, guarding or rigidity. Neurological: The patient is awake, alert and oriented to person, place, and time with normal speech. Speech is clear. There is no facial asymmetry. Normal gait Psychiatric: Appropriate mood and affect. Good judgement and insight. Review of Systems: REVIEW OF SYSTEMS: General: No fever, positive chills, or fatigue HEENT: No sore throat, no earache, no congestion, no neck pain. Cardiac: No chest pain. No palpitations. Lungs: No shortness of breath, no cough. GI: No nausea, no vomiting, no diarrhea, positive constipation, no abdominal pain : Positive dysuria, Positive hematuria. Positive left flank pain Musculoskeletal: No joint pain , no joint swelling, no extremity edema. Skin: No rash, no itching. Neuro: No headache, no dizziness, no weakness Past Medical History PAST MEDICAL HISTORY: Denies Surgical History: Denies all surgeries Family History Family History: Reviewed,noncontributory to illness Social History Smoker: Cigarettes Alcohol: Sober Drugs: Denies Drug Use Lives In: Home Was a procedure done? Was a procedure done?: No Differential Diagnosis Kidney stone (Female): Other (Differential diagnoses considered include but are not limited to pyelonephritis, UTI, nephrolithiasis, PUD, musculoskeletal pain, AAA, other) X-Ray, Labs, Meds, VS Vital Signs Date Time Temp Pulse Resp B/P (MAP) Pulse Ox O2 Delivery O2 Flow Rate FiO2 11/14/24 00:41 57 20 98 Room Air 11/14/24 00:41 97.5 57 20 149/91 (110) 98 97.5 11/13/24 21:36 98.4 62 20 145/84 (104) 98 98.4 11/13/24 19:26 98.2 68 20 152/87 (108) 96 98.2 Lab Test 11/13/24 19:28 11/13/24 19:05 Range/Units White Blood Count 11.6 H 4.4-10.8 10^3/uL Red Blood Count 5.39 4.5-5.90 10^6/uL Hemoglobin 12.6 L 13.5-17.5 g/dL Hematocrit 39.3 L 41.0-53.0 % Mean Corpuscular Volume 72.9 L 80.0-100.0 fL Mean Corpuscular Hemoglobin 23.4 L 28.0-32.0 pg Mean Corpuscular Hemoglobin Concent 32.0 32.0-36.0 g/dL Red Cell Distribution Width 19.3 H 11.8-14.3 % Platelet Count 274 140-450 10^3/uL Mean Platelet Volume 8.6 6.9-10.8 fL Neutrophils (%) (Auto) 59.4 37.0-80.0 % Lymphocytes (%) (Auto) 29.6 10.0-50.0 % Monocytes (%) (Auto) 7.9 0.0-12.0 % Eosinophils (%) (Auto) 2.1 0.0-7.0 % Basophils (%) (Auto) 1.0 0.0-2.0 % Neutrophils # (Auto) 6.9 1.6-8.6 10 ^3/uL Lymphocytes # (Auto) 3.4 0.4-5.4 10 ^3/uL Monocytes # (Auto) 0.9 0-1.3 10 ^3/uL Eosinophils # (Auto) 0.2 0-0.8 10 ^3/uL Basophils # (Auto) 0.1 0-0.2 10 ^3/uL Nucleated Red Blood Cells 0.0 % Sodium Level 144 136-145 mmol/L Potassium Level 3.8 3.5-5.1 mmol/L Chloride Level 109 H 98-107 mmol/L Carbon Dioxide Level 27 20-31 mmol/L Anion Gap 8 5-15 Blood Urea Nitrogen 10 9-23 mg/dL Creatinine 0.87 0.700-1.30 mg/dL Glomerular Filtration Rate Calc 115 >90 mL/min BUN/Creatinine Ratio 11.5 10.0-20.0 Serum Glucose 99 74-106 mg/dL Calcium Level 9.8 8.7-10.4 mg/dL Urine Color Light-yellow Yellow Urine Clarity Clear Clear Urine pH 7.5 5.0-9.0 Urine Specific [place] 1.022 1.001-1.035 Urine Protein Negative Negative Urine Ketones Negative Negative Urine Blood Negative Negative /uL Urine Nitrite Negative Negative Urine Bilirubin Negative Negative Urine Urobilinogen Normal Negative mg/dL Urine Leukocyte Esterase Negative Negative /uL Urine RBC 1 0 - 3 /hpf Urine Microscopic WBC 1 0-3 /HPF Urine Squamous Epithelial Cells Few <5 /hpf Urine Bacteria None seen None Seen /hpf Urine Mucus Few None Seen Urine Glucose Normal Normal mg/dL Current Medications Medications (Trade) Dose Ordered Sig/Cornelius Route Start Time Stop Time Status Last Admin Ketorolac Tromethamine (Toradol Injection) 30 mg ONCE ONCE IM 11/13/24 19:15 11/13/24 19:16 DC 11/14/24 00:33 Tramadol HCl (Ultram) 50 mg ONCE ONCE PO 11/13/24 19:15 11/13/24 19:16 DC 11/14/24 00:32 Acetaminophen (Tylenol Tablet) 650 mg ONCE ONCE PO 11/13/24 19:15 11/13/24 19:16 DC 11/14/24 00:32 [place] [id number] Ph: [phone] DIAGNOSTIC IMAGING Diagnostic Imaging Report : [id number] Signed PATIENT: NATHAN STANTON ACCT: [id number] UNIT: [id number] : 1990 LOC: ER ROOM / BED: / AGE / SEX: 34 / M ADM STATUS: REG ER SERVICE 190 ORDERING PHYSICIAN: BELKIS VALDIVIA MD PROCEDURE(s): ABPL - CT AB PEL WO CON-NO ORAL OR IV REASON: Flank Pain ORDER NUMBER(s): [id number], ACCESSION NUMBER(s): [id number] Exam: CT CT AB PEL WO CON-NO ORAL OR IV History: Flank Pain Comparison Study: None TECHNIQUE: Multidetector CT of the abdomen and pelvis without IV contrast. Axial, coronal and sagittal multiplanar reformats were obtained from the axial data set by the technologist. Radiation Dose Information: CT Dose: CTDI volume is 27.18 mGy. Dose-length product is 1753.05 mGy*cm FINDINGS: Bibasilar atelectasis. Partially visualized heart is unremarkable. Mild hepatomegaly. Otherwise, liver, spleen, gallbladder, pancreas and adrenal glands are unremarkable. Kidneys, ureters and urinary bladder are unremarkable. Prostate is unremarkable. Stomach is unremarkable. Small bowel loops are unremarkable. Appendix is unremarkable. Small to moderate amount of fecal material within the colon. No evidence of intraperitoneal free air or free fluid. No evidence of aortic aneurysm. No significant lymphadenopathy. Tiny fat containing umbilical hernia. Soft tissues are unremarkable. Bilateral inguinal lymphadenopathy which are most likely reactive. No destructive osseous lesions are noted. Right femoral intramedullary shelia tract is noted. IMPRESSION: No acute abdominal or pelvic finding. Radiation optimization: All CT scans at this facility use at least one of these dose optimization techniques: automated exposure control mA and/or kV adjustment per patient size (includes targeted exams where dose is matched to clinical indication) or iterative reconstruction. ATED BY: NATY RUELAS DO DICTATED DATE/TIME: 11/13/241940 SIGNED BY: NATY RUELAS DO SIGNED DATE/TIME: 11/13/241940 CC: Time of 1ST Reevaluation: 19:35 Reevaluation 1ST: Unchanged Patient Education/Counseling: Need For Follow Up Family Education/Counseling: No Family Present SEPSIS Sepsis Screen Physician Orders Ct Ab Pel Wo Con-No Oral Or Iv (11/13/24 19:05) Vital Signs Date Time Temp Pulse Resp B/P (MAP) Pulse Ox O2 Delivery O2 Flow Rate FiO2 11/14/24 00:41 57 20 98 Room Air 11/14/24 00:41 97.5 57 20 149/91 (110) 98 97.5 11/13/24 21:36 98.4 62 20 145/84 (104) 98 98.4 11/13/24 19:26 98.2 68 20 152/87 (108) 96 98.2 Laboratory Tests Test 11/13/24 19:28 White Blood Count 11.6 10^3/uL (4.4-10.8) H Medications Medications Dose Ordered Sig/Cornelius Route Start Time Stop Time Status Last Admin Dose Admin Acetaminophen 650 mg ONCE ONCE PO 11/13/24 19:15 11/13/24 19:16 DC 11/14/24 00:32 Ketorolac Tromethamine 30 mg ONCE ONCE IM 11/13/24 19:15 11/13/24 19:16 DC 11/14/24 00:33 Tramadol HCl 50 mg ONCE ONCE PO 11/13/24 19:15 11/13/24 19:16 DC 11/14/24 00:32 Departure 1 Departure Time of Disposition: 20:14 Impression: Primary Impression: Left flank pain Disposition: HOME / SELF CARE / HOMELESS Condition: Stable Additional Instructions: ED DISCHARGE INSTRUCTIONS Instructions: Please read all instructions provided in this packet carefully. Although you have been discharged from the Emergency Department, this does not mean that you have a "clean bill of health". No definitive diagnosis for your symptoms has been made today. It is possible that you are in the process of developing a serious illness. This is why you must return to the ED without fail if any new or worsening symptoms (especially if your symptoms include chest pain, trouble breathing, abdominal pain, fever, headache, confusion, trouble seeing, or trouble walking) It is also very important that you see a primary care provider (PCP) within the next 3-5 days to follow up. If you are unable to get an appointment, return to the ED for re-evaluation. It is very important that you follow up with your primary care physician (PCP). You can call your insurance company or check your insurance card to find out who your PCP is. Or call [phone] to schedule an appointment with a new primary care provider. WHY YOU NEED A PCP: Establishing and regularly seeing a PCP and undergoing routine screenings are vital for maintaining good health. Your PCP acts as your main healthcare partner, helping you stay healthy, manage chronic conditions, and detect potential problems early. Routine screenings, like mammograms or colonoscopies, can catch diseases like cancer early when treatment is often more effective. A screening test is like a quick check-up your doctor does to see if there are any problems starting in your body, even when you feel okay, so they can find them early when they're easier to fix. Why Establish a Relationship with a Primary Care Physician (PCP)? Preventive Care: Your PCP focuses on preventing illness through regular checkups, vaccinations, and health advice tailored to your needs. Chronic Disease Management: If you have a chronic condition, like diabetes or high blood pressure, your PCP can help you manage it effectively through monitoring, medication management, and lifestyle recommendations. Early Detection: Regular visits allow your PCP to track your health over time, identify subtle changes, and order necessary screenings or tests to catch potential problems early. Trusted Resource: Your PCP gets to know you, your medical history, and your concerns, making them a trusted resource for all your health-related questions. Referrals: If you need specialized care, your PCP will refer you to the appropriate specialists and help coordinate your care. Continuity of Care: Your PCP ensures that your healthcare is coordinated, especially after hospital stays or visits to other specialists. Why are Routine Screenings Important? Early Detection: Many serious illnesses like cancer, diabetes and heart disease, can be treated more successfully when detected early. Screenings like lab tests, blood pressure checks, mammograms, colonoscopies, and Pap smears are designed to catch these diseases early. Preventing Disease: Some screenings can actually help prevent diseases from developing. Peace of Mind: Knowing that you are up-to-date on your screenings can provide peace of mind and reduce anxiety about potential health problems. In summary, establishing a relationship with a primary care physician and following their recommendations for routine screenings is important for staying healthy and managing your health effectively. It's an investment in your well- being that can pay off in the long run. Abdominal Pain: Care Instructions Overview Abdominal pain has many possible causes. Some aren't serious and get better on their own in a few days. Others need more testing and treatment. If your pain continues or gets worse, you need to be rechecked and may need more tests to find out what is wrong. You may need surgery to correct the problem. Don't ignore new symptoms, such as fever, nausea and vomiting, urination problems, pain that gets worse, and dizziness. These may be signs of a more ser ious problem. If you are not getting better, you may need more tests or treatment. The doctor has checked you carefully, but problems can develop later. If you notice any problems or new symptoms, get medical treatment right away. Follow-up care is a roque part of your treatment and safety. Be sure to make and go to all appointments, and call your doctor if you are having problems. It's also a good idea to know your test results and keep a list of the medicines you take. How can you care for yourself at home? Rest until you feel better. To prevent dehydration, drink plenty of fluids. Choose water and other clear liquids until you feel better. If you have kidney, heart, or liver disease and have to limit fluids, talk with your doctor before you increase the amount of fluids you drink. When you feel like eating, start with small amounts. Do not have alcohol, caffeine, or spicy, hot, or high-fat foods for a day or two. Avoid anti-inflammatory medicines such as aspirin, ibuprofen (Advil, Motrin), and naproxen (Aleve). These can cause stomach upset. Talk to your doctor if you take daily aspirin for another health problem. When should you call for help? Call 911 anytime you think you may need emergency care. For example, call if: You passed out (lost consciousness). You pass maroon or very bloody stools. You vomit blood or what looks like coffee grounds. You have severe belly pain. Call your doctor now or seek immediate medical care if: Your pain gets worse, especially if it becomes focused in one area of your bel ly. You have a new or higher fever. Your stools are black and look like tar, or they have streaks of blood. You have unexpected vaginal bleeding. You have symptoms of a urinary tract infection. These may include: Pain when you urinate. Urinating more often than usual. Blood in your urine. You are dizzy or lightheaded, or you feel like you may faint. Watch closely for changes in your health, and be sure to contact your doctor if: You are not getting better as expected. Credits for Abdominal Pain: Care Instructions Current as of: February 17, 2023 Author: [employer] Staff Clinical Review Board All [employer] education is reviewed by a team that includes physicians, nurses, advanced practitioners, registered dieticians, and other healthcare profes sionals. e-Prescriptions Ibuprofen (Ibuprofen) 600 Mg Tab 1 TAB PO TID for 5 Days, #15 TAB Prov: BELKIS VALDIVIA MD 11/13/24 Acetaminophen (Acetaminophen Er) 650 Mg Tab 650 MG PO TIDPRN PRN for 5 Days, #15 TAB Prov: BELKIS VALDIVIA MD 11/13/24 Comments MDM: 34-year-old male with left flank pain. Abdominal exam benign. Lab and imaging results not urgently actionable. Patient felt stable for discharge home to follow up with the primary care provider. I reviewed the following notes from the pt's past medical encounters: N/A The following tests were ordered, and results were reviewed by me: (See diagnostic results section) The following test were independently interpreted by me: N/A Additional information was gathered from interviewing the following independent historians: N/A I reviewed and agreed with the following test results read by other providers: N/A I discussed treatments and results with patient Decision regarding hospitalization or escalation of hospital level of care: Risks and benefits of admission for further treatment of patient's condition was considered however due to patient's stable condition patient will be discharged to follow up closely or return to care for worsening of condition or inability to follow up. Critical Care Note Critical Care Time?: No Stability Stability form required: No I personally scribed for BELKIS VALDIVIA MD ([email or web address]) on 11/13/24 at 19:10. Electronically submitted by Raya Gutierrez ([email or web address]). I personally scribed for BELKIS VALDIVIA MD ([email or web address]) on 11/13/24 at 20:12. Electronically submitted by Raya Gutierrez ([email or web address]). BELKIS VALDIVIA MD Nov 13, 2024 19:10
[2024-11-13 19:41] LABS: Hematocrit 39.3 % (41.0-53.0); Hemoglobin 12.6 g/dL (13.5-17.5); Mean Corpuscular Hemoglobin 23.4 pg (28.0-32.0); Mean Corpuscular Volume 72.9 fL (80.0-100.0); Nucleated Red Blood Cells % 0.0 %
--- NOTE | 2024-11-13 19:43 | DVH ---
Exam: CT CT AB PEL WO CON-NO ORAL OR IV History: Flank Pain Comparison Study: None TECHNIQUE: Multidetector CT of the abdomen and pelvis without IV contrast. Axial, coronal and sagitta l multiplanar reformats were obtained from the axial data set by the technologist. Radiation Dose Information: CT Dose: CTDI volume is 27.18 mGy. Dose-length product is 1753.05 mGy*cm FINDINGS: Bibasilar atelectasis. Partially visualized heart is unremarkable. Mild hepatomegaly. Otherwise, liver, spleen, gallbladder, pancreas and adrenal glands are unremarkabl e. Kidneys, ureters and urinary bladder are unremarkable. Prostate is unremarkable. Stomach is unremarkable. Small bowel loops are unremarkable. Appendix is unremarkable. Small to mode rate amount of fecal material within the colon. No evidence of intraperitoneal free air or free fluid. No evidence of aortic aneurysm. No significant lymphadenopathy. Tiny fat containing umbilical hernia. Soft tissues are unremarkable. Bilateral inguinal lymphadenopat hy which are most likely reactive. No destructive osseous lesions are noted. Right femoral intramedul kalyn shelia tract is noted. IMPRESSION: No acute abdominal or pelvic finding. Radiation optimization: All CT scans at this facility use at least one of these dose optimization alexis hniques: automated exposure control mA and/or kV adjustment per patient size (includes targeted exam s where dose is matched to clinical indication) or iterative reconstruction.
[2024-11-13 19:52] LABS: Urine Protein, UAD Negative (Negative)
[2024-11-13 19:52] LABS: Potassium 3.8 mmol/L (3.5-5.1); Sodium 144 mmol/L (136-145)
[2024-11-13 19:53] LABS: Anion Gap 8 (5-15); Calcium 9.8 mg/dL (8.7-10.4); Carbon Dioxide 27 mmol/L (20-31)
[2024-11-13 19:57] LABS: Chloride 109 mmol/L (98-107)
[2024-11-13 19:58] LABS: BUN/Creatinine Ratio 11.5 (10.0-20.0); Blood Urea Nitrogen 10 mg/dL (9-23); Glucose 99 mg/dL (74-106)
[2024-11-13] MEDS ORDERED: IBUP-1454 PO (20:17)
[2024-11-13] MEDS ORDERED: ACET650T12 PO (20:17)
[2024-11-14] MEDS: ACETAMINOPHEN 325 MG TAB PO ONE (00:32)
[2024-11-14] MEDS: KETOROLAC TROMETH 30 MG/ML 1ML VIAL IM ONE (00:33)
[2024-11-14 00:41] VITALS: BP 149/91; PULSE 57; RESP 20; TEMP 97.5; O2SAT 98
== END 2024-11-14 00:46 | disposition home or self-care (01) ==
LOC: ER 18:55
DX: R10.32 Left lower quadrant pain (principal); R10.31 Right lower quadrant pain; R30.0 Dysuria; R31.9 Hematuria, unspecified; F17.210 Nicotine dependence, cigarettes, uncomplicated; Z79.1 Long term (current) use of non-steroidal anti-inflammatories (NSAID); Z79.899 Other long term (current) drug therapy
CPT/HCPCS: 36415; 74176; 80048; 81001; 85025; 96372; 99285; J1885

== ENCOUNTER 2024-11-21 16:13 | Emergency (ER) | payer MEDICAID ==
[~2024-11-21] VITALS: Ht 177.8 cm; Wt 133.2 kg
[~2024-11-21 16:13] MED LIST changes: +ACET650T12 PO; -BACDST PO; -CEPH500T PO; -HUR60 MT; +IBUP-1454 PO; -IBUP-1455 PO; -IBUP-1456 PO; -TRAM-626 PO
[2024-11-21 16:22] VITALS: BP 141/93; PULSE 77; RESP 20; TEMP 97.8; O2SAT 96
--- NOTE | 2024-11-21 16:25 | ED.PDOC ---
History of Present Illness HPI Comments 34-year-old male came to the ER stating that he has been having abdominal pain for the past three weeks or more. Abdominal pain not associated with nausea vomiting diarrhea. He was seen here five days ago for similar symptom for which he had a normal physical exam along with CT scan. He comes back today stating that he has been having the same pain which has not never really subsided. He has not followed up with his primary care physician. Blood pressure 141/93. Denies any other symptoms. Time Seen by MD: 16:22 Primary Care Provider: NONE Reviewed Notes: Nurses Notes, Medications, Allergies Allergies: Coded Allergies: NO KNOWN ALLERGIES (Unverified , 01/03/24) Home Meds Active Scripts Ibuprofen (Ibuprofen) 600 Mg Tab, 1 TAB PO TID for 5 Days, #15 TAB Prov:BELKIS VALDIVIA MD 11/13/24 Acetaminophen (Acetaminophen Er) 650 Mg Tab, 650 MG PO TIDPRN PRN for 5 Days, #15 TAB Prov:BELKIS VALDIVIA MD 11/13/24 Information Source: Patient Mode of Arrival: Ambulatory Severity: Moderate Timing: Weeks Duration: Since onset Past Medical History PAST MEDICAL HISTORY: Denies Surgical History: Denies all surgeries Family History Family History: Reviewed,noncontributory to illness Social History Smoker: Cigarettes Alcohol: Sober Drugs: Denies Drug Use Lives In: Home Constitutional: denies: chills, diaphoresis, fatigue, fever, malaise, sweats, weakness, others EENTM: denies: blurred vision, double vision, ear bleeding, ear discharge, ear drainage, ear pain, ear ringing, eye pain, eye redness, hearing loss, mouth pain, mouth swelling, nasal discharge, nose bleeding, nose congestion, nose pain, photophobia, tearing, throat pain, throat swelling, voice changes, others Respiratory: denies: cough, hemoptysis, orthopnea, SOB at rest, shortness of breath, SOB with excertion, stridor, wheezing, others Cardiovascular: denies: chest pain, dizzy spells, diaphoresis, Dyspnea on exertion, edema, irregular heart beat, left arm pain, lightheadedness, p alpitations, PND, syncope, others Gastrointestinal: reports: abdominal pain; denies: abdomen distended, blood streaked bowels, constipated, diarrhea, dysphagia, difficulty swallowing, hematemesis, melena, nausea, poor appetite, poor fluid intake, rectal bleeding, rectal pain, vomiting, others Genitourinary: denies: burning, dysuria, flank pain, frequency, hematuria, incontinence, penile discharge, penile sore, pain, testicle pain, testicle swe lling, urgency, others Neurological: denies: dizziness, fainting, headache, left sided numbness, left sided weakness, numbness, paresthesia, pre-existing deficit, right sided numbness, right sided weakness, seizure, speech problems, tingling, tremors, weakness, others Musculoskeletal: denies: back pain, gout, joint pain, joint swelling, muscle pain, muscle stiffness, neck pain, others Integumetry: denies: bruises, change in color, change in hair/nails, dryness, laceration, lesions, lumps, rash, wounds, others Allergic/Immunocompromised: denies: Difficulty Healing, Frequent Infections, Hives, Itching, others Hematologic/Lymphatic: denies: anemia, blood clots, easy bleeding, easy bruising, swollen glands, others Endocrine: denies: excessive hunger, excessive sweating, excessive thirst, excessive urination, flushing, intolerance to cold, intolerance to heat, unexplained weight gain, unexplained weight loss, others Psychiatric: denies: anxiety, bipolar disorder, depression, hopeless, panic disorder, schizophrenia, sleepless, suicidal, others Physical Exam General Appearance: Obese HEENT: Normal ENT Inspection, Pharynx Normal, TMs Normal Neck: Full Range of Motion, Non-Tender, Normal, Normal Inspection Respiratory: Chest Non-Tender, Lungs Clear, No Accessory Muscle Use, No Respiratory Distress, Normal Breath Sounds Cardiovascular: No Edema, No JVD, No Murmur, No Gallop, Normal Peripheral Pulses, Regular Rate/Rhythm Breast Exam: Deferred Gastrointestinal: No Organomegaly, Non Tender, No Pulsatile Mass, Normal Bowel Sounds, Soft Genitalia: Deferred Pelvic: Deferred Rectal: Deferred Extremities: No calf tenderness, Normal capillary refill, Normal inspection, Normal range of motion, Non-tender, No pedal edema Musculoskeletal : Apperance: Normal Neurologic: Alert, price clerk II-XII nml as Tested, No Motor Deficits, Normal Affect, Normal Mood, No Sensory Deficits Cerebellar Function: Normal Reflexes: Normal Skin: Dry, Normal Color, Warm Peripheral Pulses: 3+ Radial (R), 3+ Radial (L) Lymphatic: No Adenopathy Was a procedure done? Was a procedure done?: No Differential Dx Considerations may include: Anemia Electrolyte imbalance X-Ray, Labs, Meds, VS Patient alert. Complaining of abdominal pain. Vitals stable. Answering questions. Abdomen is soft nontender. Reviewed his previous visit. Possible gastritis. Was given prescription of Protonix. Explained to the patient. Was told to follow up with his primary care physician. Was told to come back if there is any problem. Time of 1ST Reevaluation: 16:24 Reevaluation 1ST: Improved Patient Education/Counseling: Diagnosis, Treatment, Prognosis, Need For Follow Up Family Education/Counseling: No Family Present Departure 1 Departure Time of Disposition: 16:25 Impression: Primary Impression: Gastritis Qualified Codes: K29.00 - Acute gastritis without bleeding Disposition: HOME / SELF CARE / HOMELESS Condition: Good e-Prescriptions Pantoprazole Sodium Sesquihydr (Protonix) 40 Mg Tab 40 MG PO DAILY for 10 Days, #10 TAB Prov: HEATH HOWARD MD 11/21/24 Discharged With: Self Critical Care Note Critical Care Time?: No Stability Stability form required: No Heart Score Heart Score: Heart Score Response (Comments) Value History N/A 0 EKG N/A 0 Age N/A 0 Risk Factors N/A 0 Troponin N/A 0 Total 0 HEATH HOWARD MD Nov 21, 2024 16:25
[2024-11-21] MEDS ORDERED: PANT40TA2 PO (17:00)
== END 2024-11-21 18:58 | disposition home or self-care (01) ==
LOC: ER 16:13
DX: K29.00 Acute gastritis without bleeding (principal); F17.210 Nicotine dependence, cigarettes, uncomplicated; E66.9 Obesity, unspecified; Z79.1 Long term (current) use of non-steroidal anti-inflammatories (NSAID); Z79.899 Other long term (current) drug therapy; Z68.41 Body mass index [BMI] 40.0-44.9, adult